=== PATIENT | female | born 1970 | race Caucasian/White ===

== ENCOUNTER 2017-11-11 16:58 | Emergency (ER) | payer BC ==
[~2017-11-11] VITALS: Ht 167.6 cm; Wt 74.8 kg
[2017-11-11] MEDS ORDERED: TRAMADOL 50 MG50 MG PO (17:08)
[2017-11-11] MEDS ORDERED: ZANAFLEX4 MG PO (17:08)
[2017-11-11] MEDS ORDERED: APAP650 PO (17:09)
[2017-11-11 17:27] VITALS: BP 122/78
== END 2017-11-11 17:30 | disposition home or self-care (01) ==
LOC: M.ERS 16:58
DX: T42.8X1A Poisoning by antiparkinsonism drugs and other central muscle-tone depressants, accidental (unintentional), initial encounter (principal); Y92.89 Other specified places as the place of occurrence of the external cause; M54.9 Dorsalgia, unspecified; G89.29 Other chronic pain; M19.90 Unspecified osteoarthritis, unspecified site; Z98.84 Bariatric surgery status